=== PATIENT | female | born 1940 | race American Indian/Alaskan Native ===

== ENCOUNTER 2017-12-21 11:29 | Emergency (ER) | payer MEDICARE, OTHER ==
[2017-12-21 11:50] VITALS: BP 160/70
[2017-12-21] MEDS ORDERED: ULTRAM PO ONE (13:13)
[2017-12-21 13:53] LABS: Bacteria,Urine 3+ /HPF (Negative); Bilirubin,Urine NEG (Negative); Blood,Urine NEG (Negative); Color,Urine Yellow (Yellow); Mucus,Urine 2+ /HPF; Protein,Urine <15 mg/dL mg/dL (Negative); Urobilinogen,Urine < 2.0 mg/dL (<2.0)
--- NOTE | 2017-12-21 14:20 | Emergency Department Report ---
ED Back Pain/Injury HPI - General Chief Complaint: Pain General Stated Complaint: BACK AND LEG PAIN Time Seen by Provider: 12/21/17 13:05 Source: patient Limitations: Physical Limitation - History of Present Illness Initial Comments: Patient is 77-year-old Female who presented with a week left lower back pain with some radiation to the left lower extremity. This is worse when she moves. Is 8 out of 10 in severity. Patient has some baseline discomfort in this area however the pain has gotten worse. Patient denies any trauma. Severity scale (0 -10): 8 Quality: burning, aching - Related Data Previous Rx's Medication Instructions Recorded Last Taken Type Ibuprofen [Motrin] 600 mg PO Q8H PRN #20 tablet 12/21/17 Unknown Rx methOCARBAMOL [Robaxin TAB] 500 mg PO Q6H PRN #15 tablet 12/21/17 Unknown Rx traMADol [Ultram] 50 mg PO Q6HR PRN #12 tablet 12/21/17 Unknown Rx Allergies Allergy/AdvReac Type Severity Reaction Status Date / Time Penicillins Allergy Rash Verified 12/21/17 11:51 ED Review of Systems ROS: Stated complaint: BACK AND LEG PAIN Other details as noted in HPI Comment: All other systems reviewed and negative ED Back Pain Physical Exam - Exam General: Vital signs noted. No distress. Alert and acting appropriately. Back/Abdomen: Yes Perilumbar Tenderness (left-sided), No Abdominal Tenderness, No Perithoracic Tenderness, No Sacroiliac Tenderness, No Flank Tenderness, No Straight Leg Raise Pain Neuro: Yes Normal Sensation, Yes Normal DTR's, Yes Normal Gait, No Motor Weakness ED Course Vital Signs 12/21/17 11:43 Temperature 97.8 F Pulse Rate 60 Respiratory 18 Rate Blood Pressure 160/70 O2 Sat by Pulse 98 Oximetry ED Medical Decision Making - Lab Data Lab Results 12/21/17 Range/Units 13:28 Urine Color Yellow (Yellow) Urine Turbidity Hazy (Clear) Urine pH 5.0 (5.0-7.0) Ur Specific [place] 1.021 (1.003-1.030) Urine Protein <15 mg/dl (Negative) mg/dL Urine Glucose (UA) Neg (Negative) mg/dL Urine Ketones Neg (Negative) mg/dL Urine Blood Neg (Negative) Urine Nitrite Neg (Negative) Urine Bilirubin Neg (Negative) Urine Urobilinogen < 2.0 (<2.0) mg/dL Ur Leukocyte Esterase Tr (Negative) Urine WBC (Auto) 8.0 H (0.0-6.0) /HPF Urine RBC (Auto) 1.0 (0.0-6.0) /HPF U Epithel Cells (Auto) 16.0 H (0-13.0) /HPF Urine Bacteria (Auto) 3+ (Negative) /HPF Urine Mucus 2+ /HPF - Radiology Data interpreted by me: X-ray of the lumbar spine shows significant disc space narrowing. arthritic changes present. There is no acute fracture. - Medical Decision Making Patient will be given medicine for symptomatic relief and begin follow-up with orthopedics. Critical care attestation.: If time is entered above; I have spent that time in minutes in the direct care of this critically ill patient, excluding procedure time. ED Disposition Clinical Impression: Sciatica Qualifiers: Laterality: left Qualified Code(s): M54.32 - Sciatica, left side Disposition: TO HOME OR SELFCARE Is pt being admited?: No Does the pt Need Aspirin: No Condition: Stable Instructions: Lumbar Radiculopathy (ED) Referrals: OBED BARNHART MD [Staff Physician] - 3-5 Days
--- NOTE | 2017-12-21 15:01 | XRay Report ---
FINAL REPORT EXAM: XR SHOULDER 2+V LT HISTORY: LT SHOULDER PAIN TECHNIQUE: 3 views of left shoulder. PRIORS: None. FINDINGS: Degenerative changes primarily in the glenohumeral joint, including probable intra-articular osteocartilaginous body projected in the posteroinferior joint compartment. Less severe degenerative change in the AC joint. No apparent fracture or dislocation. Soft tissues grossly unremarkable. IMPRESSION: 1. No acute osseous abnormality. 2. Degenerative changes.
--- NOTE | 2017-12-21 15:02 | XRay Report ---
FINAL REPORT EXAM: XR FEMUR 2+V LT HISTORY: LEFT LEG PAIN TECHNIQUE: Frontal and lateral views of left femur. PRIORS: None. FINDINGS: No apparent fracture or dislocation. Status post left total knee arthroplasty grossly intact. Diffuse soft tissue vascular calcifications. Remainder of soft tissues grossly unremarkable. IMPRESSION: 1. No acute osseous abnormality. 2. Postsurgical changes.
--- NOTE | 2017-12-21 15:05 | XRay Report ---
FINAL REPORT EXAM: XR SPINE LUMBOSACRAL 2-3V HISTORY: r/o fracture TECHNIQUE: AP, lateral and coned-down views of lumbar spine. PRIORS: None. FINDINGS: Mild-moderate disc space narrowing, endplate sclerosis and spurring in the L1-2 level. Similar, less severe degenerative change L5-S1 level and also in lower thoracic spine. Variable, diffuse facet arthrosis. Very mild anterolisthesis in the L3-4 level probably secondary to facet degeneration. No loss of height or other gross malalignment of lumbar vertebral bodies. No obvious osseous destruction. Paraspinal soft tissues grossly unremarkable. IMPRESSION: 1. No acute osseous abnormality. 2. Degenerative changes.
== END 2017-12-21 14:36 | disposition home or self-care (01) ==
LOC: ED 11:29
DX: M54.32 Sciatica, left side (principal); Z88.0 Allergy status to penicillin
CPT/HCPCS: 72100; 81001